=== PATIENT | female | born 1960 | race Hispanic/Latino ===

== ENCOUNTER 2022-03-23 08:58 | Day surgery (SDC) | payer SELFPAY ==
[2022-03-17 13:48] LABS: BASOPHILS % (AUTO) 0.5 % (0.0-5.0); EOSINOPHILS % (AUTO) 2.8 % (0.0-8.0); HEMATOCRIT 43.9 % (36-48); LYMPHOCYTES % (AUTO) 28.9 % (21.0-51.0); MEAN CORPUSCULAR HEMOGLOBIN 31.4 pg (27.0-33.0); MEAN CORPUSCULAR HGB CONC 34.2 g/dL (32.0-36.0); MEAN CORPUSCULAR VOLUME 91.8 fL (79-99); MONOCYTES % (AUTO) 9.9 % (3.0-13.0); NEUTROPHILS % (AUTO) 57.6 % (40.0-77.0); PLATELET COUNT (AUTO) 212 K/uL (130-400); RED BLOOD CELL COUNT(AUTO) 4.78 MIL/uL (4.00-5.50); RED CELL DISTRIBUTION WIDTH 12.3 % (11.0-15.5); WHITE BLOOD COUNT (AUTO) 7.6 K/uL (4.8-10.8)
[2022-03-17 13:59] LABS: APPEARANCE,URINE CLEAR (CLEAR); BILIRUBIN,URINE NEGATIVE (NEGATIVE); COLOR,URINE YELLOW (YELLOW); GLUCOSE, URINE (UA) NEGATIVE (NEGATIVE); KETONES,URINE NEGATIVE (NEGATIVE); LEUKOCYTE ESTERASE ,URINE NEGATIVE (NEGATIVE); NITRATE,URINE NEGATIVE (NEGATIVE); OCCULT BLOOD,URINE NEGATIVE (NEGATIVE); PROTEIN,URINE NEGATIVE (NEGATIVE); UROBILINOGEN,URINE 0.2 mg/dL (0.2-1.0)
[2022-03-17 14:05] LABS: CREATININE 0.7 mg/dL (0.5-1.5); POTASSIUM 4.1 mmol/L (3.5-5.1)
[2022-03-17 14:07] LABS: INR 1.05 (0.85-1.15); PROTHROMBIN TIME 11.4 SEC (9.6-11.6)
[2022-03-17 14:08] LABS: PARTIAL THROMBOPLASTIN TIME 28.1 SEC (26.3-35.5)
[2022-03-22 09:42] VITALS: BP 148/76
[2022-03-23] VITALS (20 sets, daily range): BP systolic 102–155; BP diastolic 50–78
[~2022-03-23] VITALS: Ht 162.6 cm; Wt 96.0 kg
[~2022-03-23 08:58] MED LIST: AMOX-CLAV PO; ATEN25TA PO; CALCIUM ZINC PO; CEFAZOLIN SODIUM 2 GM VIAL IV SCH; CEPH500B PO; CYCL30DR OP; DIM SGS PO; ELUX75TA PO; ERGO500093 PO; GENTAMICIN 80 MG/NS 100 ML PB 100 ML IV SCH; L.AC1CAP6 PO; LOSA100T58 PO; MIRA50TA PO; [UNRECOGNIZED DRUG - CODE] PO; [UNRECOGNIZED DRUG - OTHER] PO; [UNRECOGNIZED DRUG - OTHER] PO; hormone pellets INJ; omega red PO; viviscal PO
[2022-03-23] MEDS ORDERED: LACTATED RINGERS 1000ML 1,000 ML IV ONE (09:20)
[2022-03-23] MEDS ORDERED: CEFAZOLIN SODIUM 1 GM VIAL ONE ×2 (09:20→12:02)
[2022-03-23] MEDS ORDERED: ESTROGENS,CONJUGATED 0.625 MG/GM 42.5 GM VAG CRM VG ONE (12:00)
[2022-03-23] MEDS ORDERED: LIDOCAINE 1%-EPI 1:100,000 20 ML VIAL IJ ONE (12:02)
[2022-03-23] MEDS ORDERED: FAMOTIDINE 20MG VIAL IV ONE (12:03)
[2022-03-23] MEDS ORDERED: PROPOFOL 10 MG/ML 20ML VIAL IV ONE (12:08)
[2022-03-23] MEDS ORDERED: SUCCINYLCHOLINE CHLORIDE 20 MG/ML 10 ML VIAL ONE (12:08)
[2022-03-23] MEDS ORDERED: FENTANYL CITRATE PF 50 MCG/1 ML 2ML VIAL ONE (12:08)
[2022-03-23] MEDS ORDERED: GLYCOPYRROLATE 1 MG/5 ML SYRINGE ONE (12:08)
[2022-03-23] MEDS ORDERED: LIDOCAINE PF 100MG/5ML (2%) SYRINGE 5ML ONE (12:08)
[2022-03-23] MEDS ORDERED: ROCURONIUM 10MG/1ML SYR 10 MG/ML ML ONE ×2 (12:08→13:56)
[2022-03-23] MEDS ORDERED: MIDAZOLAM HCL 1 MG/ML 2ML VIAL ONE (12:19)
[2022-03-23] MEDS ORDERED: ONDANSETRON 4MG INJ ONE ×2 (12:50→16:31)
[2022-03-23] MEDS ORDERED: EPHEDRINE SULFATE 50 MG/ML AMPULE ONE (13:10)
[2022-03-23] MEDS ORDERED: BUPIVACAINE/PF 0.25% 30ML VIAL IJ ONE (14:26)
[2022-03-23] MEDS ORDERED: MEPERIDINE-PF 25 MG/ML SYG ONE ×2 (14:30→15:28)
[2022-03-23] MEDS ORDERED: NEOSTIGMINE 5MG/5ML SYR IV ONE (14:51)
== END 2022-03-23 17:28 | disposition home or self-care (01) ==
LOC: DAH 08:58
PROVIDERS: ATTEND Urology
DX: N39.46 Mixed incontinence (principal); M19.90 Unspecified osteoarthritis, unspecified site; I10 Essential (primary) hypertension; K21.9 Gastro-esophageal reflux disease without esophagitis; Z90.710 Acquired absence of both cervix and uterus; Z90.49 Acquired absence of other specified parts of digestive tract; Z79.899 Other long term (current) drug therapy; Z79.01 Long term (current) use of anticoagulants
CPT/HCPCS: 80048; 85025; 85610; 85730; 87088; 81003; 36415; 87635; 71045; 93005; 57288; C9803; A6260; A4223 ×2; J7030; J7120 ×2; A4452; A4344; A4649; J3490 ×5; J3010; J0690 ×2; J2710; J0330; J2001; J2250; J2704; J2405 ×2; J2175 ×2; J1580; G0168; A4215; A4222; A4221; A4663; A4600

== ENCOUNTER 2023-08-31 19:22 | Emergency (ER) | payer OTHER, SELFPAY ==
[~2023-08-31] VITALS: Ht 154.9 cm; Wt 88.5 kg
[~2023-08-31 19:22] MED LIST changes: -CEFAZOLIN SODIUM 2 GM VIAL IV SCH; -GENTAMICIN 80 MG/NS 100 ML PB 100 ML IV SCH; -LOSA100T58 PO; +LOSA100T59 PO
[2023-08-31 19:58] LABS: BASOPHILS # (AUTO) 0.03 K/uL (0.00-0.20); BASOPHILS % (AUTO) 0.3 % (0.0-5.0); EOSINOPHILS # (AUTO) 0.03 K/uL (0.00-0.70); EOSINOPHILS % (AUTO) 0.3 % (0.0-8.0); HEMATOCRIT 42.6 % (36-48); IMMATURE GRANULOCYTE ABSOLUTE 0.04 K/uL (0-1); LYMPHOCYTES # (AUTO) 1.6 K/uL (1.0-4.8); LYMPHOCYTES % (AUTO) 14.4 % (21.0-51.0); MEAN CORPUSCULAR HEMOGLOBIN 32.7 pg (27.0-33.0); MEAN CORPUSCULAR VOLUME 93.4 fL (79-99); MONOCYTES # (AUTO) 0.8 K/uL (0.1-1.0); MONOCYTES % (AUTO) 6.7 % (3.0-13.0); NEUTROPHILS # (AUTO) 8.8 K/uL (1.8-7.7); NEUTROPHILS % (AUTO) 77.9 % (40.0-77.0); PLATELET COUNT (AUTO) 247 K/uL (130-400); RED BLOOD CELL COUNT(AUTO) 4.56 MIL/uL (4.00-5.50); RED CELL DISTRIBUTION WIDTH 12.3 % (11.0-15.5); WHITE BLOOD COUNT (AUTO) 11.3 K/uL (4.8-10.8)
[2023-08-31 20:16] LABS: APPEARANCE,URINE CLEAR (CLEAR); BILIRUBIN,URINE NEGATIVE (NEGATIVE); COLOR,URINE YELLOW (YELLOW); GLUCOSE, URINE (UA) NEGATIVE (NEGATIVE); KETONES,URINE NEGATIVE (NEGATIVE); LEUKOCYTE ESTERASE ,URINE NEGATIVE Leu/uL (NEGATIVE); NITRATE,URINE NEGATIVE (NEGATIVE); OCCULT BLOOD,URINE NEGATIVE (NEGATIVE); PROTEIN,URINE 20 mg/dL (NEGATIVE); UROBILINOGEN,URINE 0.2 mg/dL (0.2-1.0)
[2023-08-31 20:20] LABS: ADD UA MICROSCOPIC YES
[2023-08-31 20:23] LABS: BACTERIA,URINE RARE /HPF (None Seen); MUCUS,URINE RARE LPF (None Seen); SQUAMOUS EPITHELIAL CELL,UR FEW /HPF (0-2); YEAST,URINE BUDDING FEW /HPF (None Seen)
[2023-08-31 20:24] LABS: CREATININE 0.7 mg/dL (0.5-1.5); POTASSIUM 4.5 mmol/L (3.5-5.1)
[2023-08-31 20:29] LABS: ALBUMIN 4.2 g/dL (3.5-5.0); BILIRUBIN,TOTAL 1.3 mg/dL (0.2-1.0); TOTAL PROTEIN, SERUM 8.5 g/dL (6.0-8.3)
[2023-08-31] MEDS ORDERED: ONDANSETRON 4MG INJ IVP ONE (20:30)
[2023-08-31] MEDS ORDERED: IOHEXOL-350 75 ML VIAL IV ONE (20:37)
[2023-08-31 23:12] VITALS: BP 142/70; PULSE 70; RESP 18; O2SAT 97
[2023-08-31] MEDS ORDERED: ONDA4TAB10 PO (23:16)
[2023-08-31] MEDS ORDERED: METOCLOPRAMIDE 10 MG/2 ML VIAL IVP ONE (23:30)
== END 2023-08-31 23:39 | disposition home or self-care (01) ==
LOC: EDH 19:22
DX: K92.1 Melena (principal); I10 Essential (primary) hypertension; Z90.49 Acquired absence of other specified parts of digestive tract; Z98.890 Other specified postprocedural states; Z79.899 Other long term (current) drug therapy
CPT/HCPCS: 99285; 74177; 96374; 96375; 82270; 82550; 84484; 80053; 85025; 86850; 86900; 86901; 81001; 36415; 93005; J2405; J2765; Q9967